=== PATIENT | male | born 1995 | race Caucasian/White ===

== ENCOUNTER 2019-03-10 18:12 | Emergency (ER) | payer SELFPAY ==
[~2019-03-10] VITALS: Ht 180.3 cm; Wt 88.7 kg
[2019-03-10 18:25] VITALS: BP 140/76; PULSE 106; RESP 18; Ht 180.3 cm; Wt 88.7 kg
[2019-03-10] MEDS ORDERED: LORAZEPAM 1 MG TAB PO ONE (21:00)
[2019-03-10] MEDS ORDERED: PROMETHAZINE (1.25 MG/ML) 5 ML CUP PO ONE (21:00)
[2019-03-10] MEDS ORDERED: PROM6.2515 PO (21:12)
--- NOTE | 2019-03-10 21:13 | ERD ---
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 Pt states to have presented to multiple pharmacy's throughout the area and states all have been out of his prescribed medication. Pt admits to 5-6 episodes of vomiting yesterday and believes it is due to them currently undergoing detox. Pt denies chronic medical conditions, but notes to currently take Estradiol 6mg and Spironolactone 150mg as they are currently transitioning. Pt denies fevers, chill, SOB, chest pain, abdominal pain, or diarrhea. ROS All systems reviewed and are negative except as per history of present illness. CONSTITUTIONAL: Denies fever, Denies chills, Denies general weakness. SKIN: Denies itching, Denies rash, Denies redness. RESPIRATORY: Denies SOB, Denies cough. CARDIOVASCULAR: Denies chest pain, Denies palpitations GI: Admits to nausea, Admits to vomiting. Denies diarrhea, Denies abd pain. : Denies dysuria, Denies urgency, Denies hematuria Medications Home Meds Active Scripts Promethazine Hcl* (Promethazine Hcl* Syrup) 6.25 Mg/5 Ml Syrup, 12.5 MG PO Q6H PRN for NAUSEA, #120 ML Prov:SAUL MELCHOR PA-C 03/10/19 Allergies Allergies: Coded Allergies: clindamycin (Unverified Allergy, Unknown, rash hives, 03/10/19) ondansetron (Unverified Allergy, Unknown, rash, 03/10/19) phenobarbital (Unverified Allergy, Unknown, RASH, 03/10/19) PMhx/Soc Medical and Surgical Hx: pt denies Medical Hx, pt denies Surgical Hx History of Surgery: No Anesthesia Reaction: No Hx Neurological Disorder: No Hx Respiratory Disorders: No Hx Cardiac Disorders: No Hx Psychiatric Problems: No Hx Miscellaneous Medical Probl: No Hx Alcohol Use: Yes Hx Substance Use: Yes Hx Tobacco Use: Yes Smoking Status: Current every day smoker FmHx Family History: No diabetes, No coronary disease, No other Physical Exam Vitals Vital Signs Date Temp Pulse Resp B/P (MAP) Pulse Ox O2 O2 Flow FiO2 Time Delivery Rate 03/10/19 98.7 106 18 140/76 99 18:25 (97) Physical Exam Gen: Well developed. Well nourished. No acute distress Head/Eyes: Atraumatic. Normocephalic. PERRL. EOMI ENT: Moist mucous membranes. Voice normal. Neck: Supple. No lymphadenopathy Cardio: Regular rate and rhythm. No murmurs, rubs, or gallops. Respiratory: No respiratory distress. Normal breath sounds. No wheezes, rales, or rhonchi. Abdominal: Soft. Non-tender. No guarding, rebound, or rigidity. Non- distended. Extremities: No edema, Full ROM Skin: Dry. No rashes. Warm Neuro: Alert and oriented X 3. Pressured speech Psych: Normal mood. Anxious affect Results 24 hrs Current Medications Medications Dose Sig/Rickie Start Time Status Last (Trade) Ordered Route PRN Stop Time Admin Dose Reason Admin Promethazine 6.25 mg ONCE ONCE 03/10/19 DC HCl PO 21:00 (Phenergan 03/10/19 21:01 Liq) Lorazepam 1 mg ONCE ONCE 03/10/19 DC (Ativan) PO 21:00 03/10/19 21:01 Procedures/MDM MDM: This is a 23yo trans M transitioning to F who presents to ED requesting Promethazine IM and Rx Promethazine tablets. Advised pt while we do no have Promethazine as an IM injection I would be able to offer them Promethazine PO for their symptoms. While in exam room pt verbalized understanding and agreement to PO medications, however, upon consultation with nursing staff pt became angry and eloped prior to receiving PO medications and prescriptions. Pt vitals and presentation stable at time of evaluation, with no emergent or acute findings during physical examination and evaluation. Departure Diagnosis: Primary Impression: Encounter for medication refill Additional Impressions: Eloped from emergency department Nausea Anxiety Condition: Stable Patient Instructions: Your Body's Response to Anxiety, Nausea SAUL MELCHOR PA-C Mar 10, 2019 21:13
== END 2019-03-10 21:02 | disposition home or self-care (01) ==
LOC: FTE 18:12
DX: R11.2 Nausea with vomiting, unspecified (principal); F17.210 Nicotine dependence, cigarettes, uncomplicated; F41.9 Anxiety disorder, unspecified; Z76.0 Encounter for issue of repeat prescription
CPT/HCPCS: 99281